=== PATIENT | female | born 1965 | race Caucasian/White ===

== ENCOUNTER 2016-10-28 07:13 | Day surgery (SDC) | payer OTHER ==
[2016-10-28] MEDS ORDERED: PROPOFOL INJ 200 MG/20 ML VIAL IV ONE (07:20)
[2016-10-28 08:58] VITALS: BP 109/80
--- NOTE | 2016-10-28 10:15 | Operative Report ---
Operative Report DATE OF SURGERY: 10/28/16 Operative Report: The risks benefits and alternatives of the procedure explained to the patient in detail and informed consent is obtained that GIF Olympus video scope was inserted into the patient's mouth and hypopharynx the esophagus is identified intubated and insufflated the scope was then advanced through the esophagus stomach and duodenum retroflexion maneuver is done the esophagus stomach and first and second portions of the duodenum examined PREOPERATIVE DIAGNOSIS: العلي's esophagus POSTOPERATIVE DIAGNOSIS: العلي's esophagus that is ablated OPERATION: EGD with ablation SURGEON: JESS RODRIGUEZ ANESTHESIA: LMAC TISSUE REMOVED OR ALTERED: None. COMPLICATIONS: None. ESTIMATED BLOOD LOSS: none. INTRAOPERATIVE FINDINGS: العلي's esophagus that is improved but several areas still remain these areas were touched up using the ablative device. Hiatal hernia still present. Improvement in gastritis PROCEDURE: Patient tolerated the procedure well. No immediate postprocedure complications are noted. Patient is discharged in good condition. Discharge date 10/28/2016. Discharge diet: Regular. Discharge activity: Regular. Follow-up in 2-3 weeks to discuss findings Repeat EGD with ablation in 6-8 weeks Patient is instructed to go to the emergency room or call the office should there be any further problems or questions
== END 2016-10-28 08:53 | disposition home or self-care (01) ==
LOC: END 07:13
PROVIDERS: ATTEND Internal Medicine Gastroenterology
PROC: 0D558ZZ Destruction of Esophagus, Via Natural or Artificial Opening Endoscopic (ICD-10-PCS; principal; 2016-10-28 08:00)
DX: K22.719 Barrett's esophagus with dysplasia, unspecified (principal); G43.909 Migraine, unspecified, not intractable, without status migrainosus; F32.9 Major depressive disorder, single episode, unspecified; F41.9 Anxiety disorder, unspecified; Z79.899 Other long term (current) drug therapy; Z87.11 Personal history of peptic ulcer disease
CPT/HCPCS: 43270; J2704; 740